=== PATIENT | male | born 1985 | race Caucasian/White ===

== ENCOUNTER 2016-12-13 02:36 | Emergency (ER) | payer SELFPAY ==
[2016-12-13 02:48] VITALS: RESP 16; TEMP 97.9
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
[2016-12-13] MEDS ORDERED: NS 1,000 ML IV ONE (02:52)
[2016-12-13] MEDS ORDERED: ONDANSETRON 4 MG/2 ML VIAL IVP ONE (02:53)
[2016-12-13 03:29] VITALS: BP 128/76; PULSE 100; O2SAT 96
[2016-12-13 03:34] LABS: ETHANOL SERUM 370 mg/dL (0-10)
== END 2016-12-13 03:48 | disposition home or self-care (01) ==
LOC: EDUNIT#
DX: F10.120 Alcohol abuse with intoxication, uncomplicated (principal); Z87.891 Personal history of nicotine dependence
CPT/HCPCS: G0480